=== PATIENT | female | born 1955 | race Caucasian/White ===

== ENCOUNTER 2020-11-07 20:34 | Inpatient (IN) | payer OTHER ==
[~2020-11-07] VITALS: Ht 154.9 cm; Wt 56.3 kg
[~2020-11-07 20:34] MED LIST: COMPAZINE5 MG PO; COZAAR 50MG TAB50 MG PO; DULCOLAX10 MG PR; LEXAPRO TAB 1010 MG PO; LIPITOR TAB 1010 MG PO; MI-ACID80 MG PO; MIRTAZAPINE15 MG PO; MUCINEX600 MG PO; MULTIVITAMINS1 EAC1 PO; OMNICEF 300 MG300 MG PO; ONDANSETRON ODT4 MG SL; PHENERGAN 12.12.5 M1 PO; PROTONIX40 MG PO; PROVENTIL HFA6.7 GM INH; ROXICODONE5 MG PO; SINGULAIR10 MG PO; ZOFRAN 4 MG TAB4 MG PO
[2020-11-07 21:31] LABS: HEMOGLOBIN 8.5 gm/dl (12.3-15.3); RED BLOOD COUNT 2.88 M/UL (4.00-5.10)
[2020-11-07 21:44] LABS: WHITE BLOOD COUNT 50.9 K/UL (4.5-11.0)
[2020-11-07 21:46] LABS: BUN/CREATININE RATIO 15 (0-10)
[2020-11-08] MEDS ORDERED: ELIQUIS5 MG PO (02:36)
[2020-11-08 05:50] LABS: HEMOGLOBIN 6.8 gm/dl (12.3-15.3); RED BLOOD COUNT 2.29 M/UL (4.00-5.10); WHITE BLOOD COUNT 41.3 K/UL (4.5-11.0)
[2020-11-09 06:18] LABS: HEMOGLOBIN 8.8 gm/dl (12.3-15.3); RED BLOOD COUNT 2.96 M/UL (4.00-5.10)
[2020-11-10 02:54] LABS: HEMOGLOBIN 8.7 gm/dl (12.3-15.3); RED BLOOD COUNT 2.95 M/UL (4.00-5.10)
[2020-11-10 03:30] LABS: WHITE BLOOD COUNT 13.4 K/UL (4.5-11.0)
[2020-11-10 04:08] LABS: BUN/CREATININE RATIO 11 (0-10)
[2020-11-10] MEDS ORDERED: LEVOFLOXACIN500 MG PO (11:34)
[2020-11-10] MEDS ORDERED: BANOPHEN25 MG PO (11:34)
[2020-11-10] MEDS ORDERED: ACID REDUCER20 MG PO (11:34)
== END 2020-11-10 16:27 | disposition home health service (06) | DRG 871 ==
LOC: ER1 20:34 → CDU 11-08 02:13 → MED SURG 4 11-08 03:45 → CDU 11-10 10:38 → MED SURG 4 11-10 10:38
PROVIDERS: Physician Assistant; ADMIT Internal Medicine
PROC: 30233N1 Transfusion of Nonautologous Red Blood Cells into Peripheral Vein, Percutaneous Approach (ICD-10-PCS; principal; 2020-11-08)
DX: A41.89 Other specified sepsis (principal); G93.41 Metabolic encephalopathy; N30.00 Acute cystitis without hematuria; N17.9 Acute kidney failure, unspecified; E87.1 Hypo-osmolality and hyponatremia; C34.90 Malignant neoplasm of unspecified part of unspecified bronchus or lung; C78.89 Secondary malignant neoplasm of other digestive organs; C79.31 Secondary malignant neoplasm of brain; E87.0 Hyperosmolality and hypernatremia; Z20.822 Contact with and (suspected) exposure to COVID-19; D63.0 Anemia in neoplastic disease; E87.6 Hypokalemia; B96.1 Klebsiella pneumoniae [K. pneumoniae] as the cause of diseases classified elsewhere; D64.81 Anemia due to antineoplastic chemotherapy; T45.1X5A Adverse effect of antineoplastic and immunosuppressive drugs, initial encounter; I10 Essential (primary) hypertension; Z86.711 Personal history of pulmonary embolism; Z90.49 Acquired absence of other specified parts of digestive tract; Z90.710 Acquired absence of both cervix and uterus; Z88.6 Allergy status to analgesic agent; Z88.0 Allergy status to penicillin; Z88.2 Allergy status to sulfonamides; Z82.49 Family history of ischemic heart disease and other diseases of the circulatory system; Z79.899 Other long term (current) drug therapy; R74.8 Abnormal levels of other serum enzymes
CPT/HCPCS: 0240U; 36415; 36430; 70450; 71045; 80048; 80053; 80307; 81001; 82550; 82553; 82607; 82728; 82746; 83010; 83540; 83550; 83605; 83874; 83880; 84484; 85025; 85045; 85610; 85730; 86850; 86900; 86901; 86920; 87040; 87077; 87086; 87186; 93005; 96365; 99285; C9113; J0696; J1956; J3480; P9016

== ENCOUNTER 2020-12-01 14:05 | Inpatient (IN) | payer OTHER ==
[~2020-12-01] VITALS: Ht 154.9 cm; Wt 66.7 kg
[~2020-12-01 14:05] MED LIST changes: +ACID REDUCER20 MG PO; +BANOPHEN25 MG PO; +ELIQUIS5 MG PO; +LEVOFLOXACIN500 MG PO
[2020-12-01 16:46] LABS: HEMOGLOBIN 9.9 gm/dl (12.3-15.3); RED BLOOD COUNT 3.44 M/UL (4.00-5.10)
[2020-12-01 17:20] LABS: BUN/CREATININE RATIO 9 (0-10)
[2020-12-02 05:54] LABS: HEMOGLOBIN 9.1 gm/dl (12.3-15.3)
[2020-12-02 05:55] LABS: RED BLOOD COUNT 3.09 M/UL (4.00-5.10); WHITE BLOOD COUNT 11.7 K/UL (4.5-11.0)
[2020-12-03 03:09] LABS: HEMOGLOBIN 9.2 gm/dl (12.3-15.3); RED BLOOD COUNT 3.17 M/UL (4.00-5.10); WHITE BLOOD COUNT 16.1 K/UL (4.5-11.0)
[2020-12-03 03:26] LABS: BUN/CREATININE RATIO 4 (0-10)
[2020-12-04 05:27] LABS: HEMOGLOBIN 9.8 gm/dl (12.3-15.3); RED BLOOD COUNT 3.39 M/UL (4.00-5.10); WHITE BLOOD COUNT 13.7 K/UL (4.5-11.0)
[2020-12-05 05:10] LABS: BUN/CREATININE RATIO 3 (0-10)
[2020-12-05] MEDS ORDERED: ZYVOX600 MG PO (12:23)
[2020-12-06 05:02] LABS: BUN/CREATININE RATIO 4 (0-10)
--- NOTE | 2020-12-06 05:17 | NUR ---
vanc trough high at 22.1 called pharmacy; hold this dose. K+ 3.1 will cover the potassium protocal.
[2020-12-06] MEDS ORDERED: AMLODIPINE BESYL5 MG PO (11:44)
[2020-12-07 05:55] LABS: BUN/CREATININE RATIO 8 (0-10)
[2020-12-07] MEDS ORDERED: NITROFURANTOIN100 MG PO (10:26)
--- NOTE | 2020-12-07 14:15 | NUR ---
CALLED REPORT TO SAMIR PEPE RN [facility]
== END 2020-12-07 15:10 | disposition home or self-care (01) | DRG 689 ==
LOC: ER1 14:05 → M/S 18:41 → CDU 18:41 → M/S 20:40
PROVIDERS: Physician Assistant; ADMIT Internal Medicine
DX: N30.00 Acute cystitis without hematuria (principal); G93.41 Metabolic encephalopathy; C34.90 Malignant neoplasm of unspecified part of unspecified bronchus or lung; D84.9 Immunodeficiency, unspecified; E87.6 Hypokalemia; B95.2 Enterococcus as the cause of diseases classified elsewhere; Z20.822 Contact with and (suspected) exposure to COVID-19; F17.200 Nicotine dependence, unspecified, uncomplicated; I10 Essential (primary) hypertension; Z86.711 Personal history of pulmonary embolism; Z79.01 Long term (current) use of anticoagulants; Z88.0 Allergy status to penicillin; Z90.49 Acquired absence of other specified parts of digestive tract; Z90.710 Acquired absence of both cervix and uterus; Z88.2 Allergy status to sulfonamides; Z88.8 Allergy status to other drugs, medicaments and biological substances; Z82.49 Family history of ischemic heart disease and other diseases of the circulatory system
CPT/HCPCS: 36415; 70450; 71045; 80048; 80053; 80202; 81001; 83605; 84132; 85025; 87040; 87077; 87086; 87186; 96365; 96375; 99284; J0696; J3370; J7030; J7070; Q9967; U0002